=== PATIENT | female | born 2000 | race Caucasian/White ===

== ENCOUNTER 2022-01-25 15:05 | Emergency (ER) | payer OTHER ==
[~2022-01-25] VITALS: Ht 175.3 cm; Wt 84.1 kg
[2022-01-25 15:11] VITALS: BP 131/72
[2022-01-25] MEDS ORDERED: DiphenhydrAMINE HCL 25 MG CAPSULE PO ONE (15:30)
[2022-01-25] MEDS ORDERED: PredniSONE 20 MG TABLET PO ONE (15:30)
[2022-01-25] MEDS ORDERED: PRED-554 PO (15:45)
== END 2022-01-25 16:42 | disposition home or self-care (01) ==
LOC: EMS 15:07
DX: T78.40XA Allergy, unspecified, initial encounter (principal); X58.XXXA Exposure to other specified factors, initial encounter
CPT/HCPCS: 99283; J7512